=== PATIENT | female | born 2000 | race Caucasian/White ===

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

== ENCOUNTER 2022-12-31 22:02 | Outpatient (CLI) | payer OTHER ==
[2022-12-31] MEDS ORDERED: PRENATAL TABLE1 EAC1 PO (22:35)
== END 2023-01-01 10:02 | disposition home or self-care (01) ==
LOC: OBS/DEL 22:02
PROVIDERS: ATTEND Specialist
DX: O26.893 Other specified pregnancy related conditions, third trimester (principal); Z3A.32 32 weeks gestation of pregnancy

== ENCOUNTER 2023-02-12 10:44 | Inpatient (IN) | payer OTHER ==
[~2023-02-12] VITALS: Ht 170.2 cm; Wt 81.6 kg
[~2023-02-12 10:44] MED LIST changes: +PRENATAL TABLE1 EAC1 PO
== END 2023-02-14 13:24 | disposition home or self-care (01) | DRG 807 ==
LOC: LDR 18:38 → OB/GYN 02-13 13:11
PROVIDERS: ADMIT Specialist; ATTEND Specialist
PROC: 10E0XZZ Delivery of Products of Conception, External Approach (ICD-10-PCS; principal; 2023-02-12)
PROC: 0W8NXZZ Division of Female Perineum, External Approach (ICD-10-PCS; 2023-02-12)
PROC: 4A1HXCZ Monitoring of Products of Conception, Cardiac Rate, External Approach (ICD-10-PCS; 2023-02-12)
DX: O80 Encounter for full-term uncomplicated delivery (principal); Z37.0 Single live birth; Z3A.38 38 weeks gestation of pregnancy; Z20.822 Contact with and (suspected) exposure to COVID-19